=== PATIENT | male | born 1970 | race Caucasian/White ===

== ENCOUNTER 2017-09-10 01:11 | Emergency (ER) | payer MEDICAID ==
[~2017-09-10] VITALS: Ht 170.2 cm; Wt 83.0 kg
[2017-09-10 04:54] LABS: BASOPHILS % 0.7 % (0.0-2.0); EOSINOPHILS % 1.9 % (0.0-5.0); HEMATOCRIT. 33.2 % (42.0-52.0); HEMOGLOBIN. 11.4 g/dL (14.0-18.0); LYMPHOCYTES % 32.6 % (20.0-50.0); MEAN CORPUSCULAR HEMOGLOBIN 30.4 pg (28.0-32.0); MEAN CORPUSCULAR VOLUME 88.8 fL (80.0-94.0); MEAN PLATELET VOLUME 8.3 fl (7.4-10.4); MONOCYTES % 7.7 % (2.0-8.0); NEUTROPHILS % 57.1 % (40.0-76.0); PLATELET 305 x1000/uL (130-400); RED BLOOD CELL COUNT 3.73 mill/uL (4.7-6.1); RED CELL DISTRIBUTION WIDTH 14.9 % (11.6-14.6)
[2017-09-10 05:00] LABS: CHLORIDE 103 mEq/L (98-107)
[2017-09-10 05:04] LABS: ETHANOL BLOOD 53 mg/dL
[2017-09-10 05:11] LABS: CLARITY URINE CLEAR (CLEAR); COLOR URINE YELLOW (YELLOW); KETONES URINE NEGATIVE (NEGATIVE); LEUKOCYTE ESTERASE URINE NEGATIVE (NEGATIVE); NITRITE URINE NEGATIVE (NEGATIVE); OCCULT BLOOD URINE NEGATIVE (NEGATIVE); PROTEIN URINE NEGATIVE (NEGATIVE); SPECIFIC GRAVITY URINE 1.023 (1.005-1.030); UROBILINOGEN URINE 0.2 E.U./dL (0.2-1.0)
[2017-09-10 05:27] LABS: *AMPHETAMINES SCREEN URINE NEGATIVE (NEGATIVE)
[2017-09-10 05:28] LABS: *BARBITURATES SCREEN URINE NEGATIVE (NEGATIVE); *BENZODIAZEPINES SCREEN URINE PRESUMTIVE POSITIVE (NEGATIVE); *COCAINE SCREEN URINE NEGATIVE (NEGATIVE); CANNABINOID URINE SCREEN PRESUMTIVE POSITIVE (NEGATIVE); METHADONE URINE SCREEN NEGATIVE (NEGATIVE); OPIATES URINE SCREEN PRESUMTIVE POSITIVE (NEGATIVE); PHENCYCLIDINE URINE SCREEN NEGATIVE (NEGATIVE)
[2017-09-10] MEDS ORDERED: INSULIN REGULAR (HUMULIN R) 300UNITS/3ML SUBCUT ONE (06:15)
[2017-09-10 12:00] VITALS: BP 119/71
== END 2017-09-10 17:48 ==
LOC: ER 01:11
DX: R45.851 Suicidal ideations (principal); E11.65 Type 2 diabetes mellitus with hyperglycemia; F32.9 Major depressive disorder, single episode, unspecified; F20.9 Schizophrenia, unspecified; I10 Essential (primary) hypertension; F17.200 Nicotine dependence, unspecified, uncomplicated; F10.20 Alcohol dependence, uncomplicated; F12.10 Cannabis abuse, uncomplicated; Y90.2 Blood alcohol level of 40-59 mg/100 ml
CPT/HCPCS: 36415; 80053; 80305; 80307; 80329; 81003; 82962; 85025; 96372; 99285; G0482; J1815

== ENCOUNTER 2019-03-18 13:34 | Emergency (ER) | payer MEDICAID ==
[~2019-03-18] VITALS: Ht 177.8 cm; Wt 77.0 kg
[2019-03-18 14:34] LABS: CLARITY URINE CLEAR (CLEAR); COLOR URINE YELLOW (YELLOW); KETONES URINE NEGATIVE (NEGATIVE); LEUKOCYTE ESTERASE URINE NEGATIVE (NEGATIVE); NITRITE URINE NEGATIVE (NEGATIVE); OCCULT BLOOD URINE NEGATIVE (NEGATIVE); PH URINE 5.5 (4.5-8.0); PROTEIN URINE NEGATIVE (NEGATIVE); SPECIFIC GRAVITY URINE 1.006 (1.005-1.030); UROBILINOGEN URINE 0.2 E.U./dL (0.2-1.0)
[2019-03-18 14:41] LABS: BASOPHILS % 0.7 % (0.0-2.0); EOSINOPHILS % 1.5 % (0.0-5.0); HEMATOCRIT. 40.2 % (42.0-52.0); HEMOGLOBIN. 13.7 g/dL (14.0-18.0); LYMPHOCYTES % 19.1 % (20.0-50.0); MEAN CORPUSCULAR HEMOGLOBIN 31.7 pg (28.0-32.0); MEAN CORPUSCULAR VOLUME 92.7 fL (80.0-94.0); MEAN PLATELET VOLUME 8.5 fl (7.4-10.4); MONOCYTES % 7.4 % (2.0-8.0); NEUTROPHILS % 71.3 % (40.0-76.0); PLATELET 205 x1000/uL (130-400); RED BLOOD CELL COUNT 4.33 mill/uL (4.7-6.1); RED CELL DISTRIBUTION WIDTH 13.5 % (11.6-14.6)
[2019-03-18 14:47] LABS: CHLORIDE 109 mEq/L (98-107)
[2019-03-18 14:50] LABS: ETHANOL BLOOD < 10 mg/dL
[2019-03-18 14:54] LABS: *AMPHETAMINES SCREEN URINE NEGATIVE (NEGATIVE); *BARBITURATES SCREEN URINE NEGATIVE (NEGATIVE); *BENZODIAZEPINES SCREEN URINE NEGATIVE (NEGATIVE)
[2019-03-18 14:55] LABS: *COCAINE SCREEN URINE NEGATIVE (NEGATIVE); CANNABINOID URINE SCREEN NEGATIVE (NEGATIVE); METHADONE URINE SCREEN NEGATIVE (NEGATIVE); OPIATES URINE SCREEN NEGATIVE (NEGATIVE); PHENCYCLIDINE URINE SCREEN NEGATIVE (NEGATIVE)
[2019-03-18] MEDS ORDERED: SODIUM CHLORIDE 0.9% 1,000 ML IV NR (15:30)
[2019-03-18] MEDS ORDERED: LORAZEPAM 2MG/ML CPJ IV NR (15:30)
[2019-03-18 17:45] VITALS: BP 121/69
== END 2019-03-18 17:45 | disposition home or self-care (01) ==
LOC: ER 13:34
DX: R44.0 Auditory hallucinations (principal); T43.591A Poisoning by other antipsychotics and neuroleptics, accidental (unintentional), initial encounter; G25.3 Myoclonus; Y92.89 Other specified places as the place of occurrence of the external cause; D64.9 Anemia, unspecified; E87.6 Hypokalemia; E11.9 Type 2 diabetes mellitus without complications; I10 Essential (primary) hypertension; F20.9 Schizophrenia, unspecified
CPT/HCPCS: 36415; 80053; 80305; 80307; 80320; 80329; 81003; 82962; 85025; 93005; 96374; 99284; J2060; G0480

== ENCOUNTER 2020-01-14 11:22 | Emergency (ER) | payer MEDICAID ==
[~2020-01-14] VITALS: Ht 170.2 cm; Wt 74.0 kg
[2020-01-14 11:41] VITALS: BP 154/95
[2020-01-14] MEDS ORDERED: ACETAMINOPHEN 325MG TABLET PO ONE (13:30)
== END 2020-01-14 14:09 | disposition home or self-care (01) ==
LOC: ER 12:03
DX: T14.8XXA Other injury of unspecified body region, initial encounter (principal); R07.81 Pleurodynia; I10 Essential (primary) hypertension; E11.9 Type 2 diabetes mellitus without complications; W18.30XA Fall on same level, unspecified, initial encounter; Y93.89 Activity, other specified; Y92.89 Other specified places as the place of occurrence of the external cause; Y99.8 Other external cause status
CPT/HCPCS: 71045; 99283